=== PATIENT | female | born 1975 | race Caucasian/White ===

== ENCOUNTER 2020-11-06 23:59 | Emergency (ER) | payer OTHER ==
[~2020-11-06] VITALS: Ht 170.2 cm; Wt 68.2 kg
[2020-11-07 01:45] VITALS: BP 141/97
== END 2020-11-07 01:45 | disposition home or self-care (01) ==
LOC: ED 23:59
DX: U07.1 COVID-19 (principal); R04.0 Epistaxis

== ENCOUNTER → 2022-04-27 | Outpatient (CLI) | payer OTHER | LOC: MAMMO 09:46 | DX: Z12.31 Encounter for screening mammogram for malignant neoplasm of breast (principal) ==

== ENCOUNTER → 2022-07-25 | Day surgery (SDC) | payer OTHER | END | disposition home or self-care (01) | LOC: MSO 07:31 | DX: Z12.11 Encounter for screening for malignant neoplasm of colon (principal); Z86.16 Personal history of COVID-19 | CPT/HCPCS: 00812; J2704; J3010; J7120 ==